=== PATIENT | female | born 2000 | race Caucasian/White ===

== ENCOUNTER 2020-09-28 19:47 | Emergency (ER) | payer BC ==
[~2020-09-28] VITALS: Ht 154.9 cm; Wt 61.2 kg
[2020-09-28] MEDS ORDERED: NOHOMEMEDICATIONS (19:53)
[2020-09-28] MEDS ORDERED: ERYTHROMYCIN E3.5 G3 OPHTHALMIC ×2 (22:03→22:05)
[2020-09-28 22:10] VITALS: BP 107/69
== END 2020-09-28 22:10 | disposition home or self-care (01) ==
LOC: ER 19:47
DX: T15.01XA Foreign body in cornea, right eye, initial encounter (principal); Z88.2 Allergy status to sulfonamides; X58.XXXA Exposure to other specified factors, initial encounter; Y93.89 Activity, other specified; Y92.89 Other specified places as the place of occurrence of the external cause; Y99.8 Other external cause status